=== PATIENT | female | born 2005 | race Caucasian/White ===

== ENCOUNTER 2025-04-27 18:04 | Emergency (ER) | payer OTHER, SELFPAY ==
--- NOTE | 2025-04-27 18:05 | ED_ITS ---
HPI - Skin/Abscess/Foreign Bdy General Chief complaint: Skin/Abscess/Foreign Body Stated complaint: rash behind ears Time Seen by Provider: 04/27/25 18:04 Source: patient Mode of arrival: ambulatory Limitations: no limitations History of Present Illness HPI narrative: Geri is a 19-year-old female patient presenting to the clinic today with complaints of swollen knotted areas to the left posterior ear and to the posterior neck. States that the symptoms started on Friday. They are mildly tender to touch. No fevers, chills, body aches. Denies any URI symptoms. Denies any ear pain, dental pain, or sore throat. Has not taken anything for her symptoms. Related Data Home Medications ?Medication ?Instructions ?Recorded ?Confirmed ?Last Taken ?Type potassium aminobenzoate 500 mg PO PRN 09/04/22 09/04/22 Unknown History capsule Allergies Allergy/AdvReac Type Severity Reaction Status Date / Time amoxicillin AdvReac Intermediate Hives Verified 04/27/25 18:24 Penicillins AdvReac Intermediate Hives Verified 04/27/25 18:24 Review of Systems Review of Systems: Pertinent positives per HPI. Patient denies any fever, chills, rash, headache, visual changes, dizziness, cough, runny nose, sore throat, shortness of breath, chest pain, palpitations, nausea, vomiting, diarrhea, constipation, abdominal pain, or any urinary issues. [facility] Social History Social History Smoking status: Never smoker Alcohol intake: current Alcohol use details: once maybe every six mths Substance use: current Substance use type: marijuana Last use: two months ago - relax Living arrangements: with family Occupation/Education: student Gender identity (if verbalized by the patient): Female Comments At the time of my signature, I reviewed and agree with the nursing past medical, surgical, social, and family history. There is no relevant family history pertinent to the patient complaint. Exam Narrative: General: Well-developed, well nourished, in no apparent distress Head: Normocephalic, atraumatic Eyes: Pupils equally round and reactive to light bilaterally, EOM intact, sclera and conjunctive clear, no discharge, lids normal Ears: TMs intact and clear, ear canals clear, no drainage, grossly hearing normal. Enlargement left postauricle lymph nodes-no redness or erythema, tender to palpation Nose: Nares patent, no discharge, no inflammation, no sinus tenderness. Mouth: Oropharynx without lesions or masses, good dentition, MMM. Neck: Supple, trachea midline, no enlargement of anterior, enlargement of left posterior cervical node-no redness or erythema but tender to palpation, no thyroid masses or goiter palpable. Cardio: Regular rate and rhythm, s1 and s2 normal, no murmur appreciated. Resp: Clear to auscultation bilaterally anteriorly and posteriorly, no rhonchi, rales, wheezing or rubs Course Course Emergency Course: Portions of this record may have been created with voice recognition software. Level of Care: Express Care Visit Vital Signs Vital signs: Vital Signs Temperature 36.8 C 04/27/25 18:10 Pulse Rate 87 04/27/25 18:10 Respiratory Rate 16 04/27/25 18:10 Blood Pressure 128/67 04/27/25 18:10 Pulse Oximetry 100 04/27/25 18:10 Oxygen Delivery Room Air 04/27/25 18:10 Temperature 36.8 C 04/27/25 18:10 Pulse Rate 87 04/27/25 18:10 Respiratory Rate 16 04/27/25 18:10 Blood Pressure 128/67 04/27/25 18:10 Pulse Oximetry 100 04/27/25 18:10 Oxygen Delivery Room Air 04/27/25 18:10 Vital signs reviewed MDM - Skin/Abscess/Foreign Bdy MDM Narrative Medical decision making narrative: At the time of visit patient is resting comfortably on the exam table. Patient appears to be nontoxic. Patient has swollen lymph nodes post auricle and posterior cervical. No redness or erythema around the lymph nodes, tender to palpation, She denies sore throat, fevers, chills, body aches, ear pain, or any URI symptoms. Has normal exam other than the swollen lymph nodes. Has not taken any medications for her symptoms. Plan: Patient has tender swollen lymph nodes to the posterior left cervical in the left posterior auricle. Recommend observation and follow-up with PCP in 1 week if symptoms persist-may need further evaluation such as labs or ultrasound. Supportive measures were discussed with the patient and they voiced understanding discharge instructions and agrees to treatment plan. Return precautions reviewed Differential Diagnosis Differential diagnosis: Likely abscess of skin or subcutaneous tissue, viral exanthem, dermatophytosis, urticaria, herpes zoster, allergic reaction to drug, cellulitis, eczema, insect bites, impetigo, contact dermatitis and other (Lymphadenopathy, dental infection, ear infection, mastoiditis, pharyngitis, mono, strep) Discharge Plan Discharge Clinical Impression: Lymphadenopathy, posterior cervical, Posterior auricular lymphadenopathy Patient Disposition: Home Condition: Stable Instructions: Antibiotic Form, Lymphadenopathy (ED) Additional Instructions: No sign of bacterial infection in the clinic today Observation and follow-up with primary care doctor and 1 week if symptoms persist-may need labs last ultrasound completed May take Tylenol/Motrin as needed for pain Go to the emergency room if symptoms worsen Patient Language: Kazakh Prescriptions: No Action potassium aminobenzoate 500 mg capsule PO PRN sulfamethoxazole-trimethoprim [Bactrim DS] 800-160 mg tablet 1 tablet PO Q12H Qty: 14 0RF Follow-up/Referrals: UNKNOWN,DOCTOR [Primary Care Provider] - Time of Disposition: 18:19 Quality NIHSS Nursing Documentation ED NIHSS nursing documentation: reviewed/agree
--- OUTSIDE RECORDS SUMMARY | 2025-04-27 18:06 | XMS_ITS | Clinical Summary ---
Author Organization [facility] Address [address] [place] [id number] Care Team Providers Care Operations Section Manager Name Role Phone None, Provider MD Primary Care Provider Unavaila ble Allergies Active Allergy Reactions Criticality Noted Date Comments Amoxicillin Hives 03/04/2021 Penicillins Hives 03/04/2021 Medications No known medications Social History Tobacco Use Types Packs/Day Years Used Date Smoking Tobacco: Never Smokeless Tobacco: Never Tobacco Cessation:Counseling Given: Not Answered Alcohol Use Standard Drinks/Week Comments Yes 0 (1 standard drink = 0.6 oz pur e alcohol) SOically Comments Unknown Sex and Gender Information Value Date Recorded Sex Assigned at Not on file Legal Sex Female 11:08 AM CDT Gender Identity Not on file Sexual Orientation Not on file Last Filed Vital Signs Vital Sign Reading Time Taken Comments Blood Pressure 128/84 11/19/2022 9:47 PM SOCIAL WORK NURSE Pulse 92 11/19/2022 9:47 PM SOCIAL WORK NURSE Temperature 36.3 C (97.4 F) 11/19/2022 9:47 PM SOCIAL WORK NURSE Respiratory Rate 18 11/19/2022 9:47 PM SOCIAL WORK NURSE Oxygen Saturation 100% 11/19/2022 9:47 PM SOCIAL WORK NURSE Inhaled Oxygen Concentration - - Weight 68 kg (150 lb) 11/19/2022 9:47 PM SOCIAL WORK NURSE Height 162.6 cm (5' 4) 11/19/2022 9:47 PM SOCIAL WORK NURSE Body Mass Index 25.75 11/19/2022 9:47 PM SOCIAL WORK NURSE Plan of Treatment Health Maintenance Due Date Last Done Comments Annual Physical 12/06/2007 HPV Vaccines (1 - 3-dose series) 12/06/2019 Meningococcal B Vaccine (1 o f 2 - Standard) 2020 Hepatitis C 2022 DTaP, Tdap and Td Vaccines ( 1 - Tdap) 12/06/2023 Hepatitis B Vaccines (1 of 3 - 19+ 3-dose series) 12/06/2023 COVID-19 Vaccine (1 - 2023-2 5 season) 2024 Meningococcal Vaccine Completed 07/07/2022 Pneumococcal Vaccine: Pediat rics (0 to 5 Years) and At-Risk Patients (6 to 49 Years) Aged Out No longer eligi ble based on patient's age to complete this topic RSV Immunizations Under 20 Months Aged Out No longer eligible based on patient's age to complete this topic Insurance [facility] Care Teams Operations Section Manager Relationship Specialty Start Date End Date None, Provider, PCP - General 03/04/21
[2025-04-27 18:10] VITALS: BP 128/67; PULSE 87; RESP 16; TEMP 36.8; O2SAT 100
--- OUTSIDE RECORDS SUMMARY | 2025-04-27 18:10 | XMS_ITS | Data Portability ---
Author Organization [facility] [place], [place] Address [address] [place] [address] [place] [address] Care Team Providers Care Medical Office Assistant Instructor Name Role Phone DELORIS SAM Primary Care Provider [phone] Assessment Encounter Date Assessment Date Assessment LastModified by Organization Details LastModified Time 01/10/2025 01/10/2025 Annual gynecological exam performed. Patient will come back in a year unless there are new symptoms. [email or web address] Not available 01/10/2025 14:54:54 Plan of Treatment Reminders Order Date Submit Date Provider Last Modified By Organization Details Last Modified Time Details Appointments None recorded. Lab None recorded. Referral None recorded. Procedures None recorded. Surgeries None recorded. Imaging US, transvagina l 2023 024 [email or web address] [place], [address], [place], [address], 4 21:58:37 US, pelvis, complete 2023 024 [place], [address], [place], [address], 10:38:50 Medication Orders None recorded. Patient TargetsNo targets recorded. Patient InstructionsNo instructions recorded. Reason for Referral None Reported. Results Created Date Observation Date Name Description Value Unit Range Abnormal Flag Note LastModifiedBy Organization Detail LastModifiedTime 01/07/20 24 01/07/2024 CT/GC AND TRICH OMONA S VAGIN DINO (RRNA ), URINE chlamydia trachomatis, PCR Negati ve negati ve Not Available [facility] (Lab) [address], [place], [address], 01/08/2024 14:05:08 01/07/20 24 01/07/2024 CT/GC AND TRICH OMONA S VAGIN DINO (RRNA ), URINE neisseria gonorrhoeae, PCR Negati ve negati ve Not Available [facility] (Lab) [address], [place], [address], 01/08/2024 14:05:08 01/07/20 24 01/07/2024 CT/GC AND TRICH OMONA S VAGIN DINO (RRNA ), URINE trichomonas vaginalis ribosomal RNA (rrna) Negati ve negati ve Not Available [facility] (Lab) [address], [place], [address], 01/08/2024 14:05:08 02/19/20 24 02/19/2024 CT/GC AND TRICH OMONA S VAGIN DINO (RRNA ), SWAB chlamydia trachomatis, PCR Negati ve negati ve Not Available [facility] (Lab) [address], [place], [address], 02/20/2024 12:58:39 02/19/20 24 02/19/2024 CT/GC AND TRICH OMONA S VAGIN DINO (RRNA ), SWAB neisseria gonorrhoeae, PCR Negati ve negati ve Not Available [facility] (Lab) [address], [place], [address], 02/20/2024 12:58:39 02/19/20 24 02/19/2024 CT/GC AND TRICH OMONA S VAGIN DINO (RRNA ), SWAB trichomonas vaginalis ribosomal RNA (rrna) Negati ve negati ve Not Available [facility] (Lab) [address], [place], [address], 02/20/2024 12:58:39 01/14/20 24 01/14/2024 US, trans vagin al No observ ation record ed. [email or web address] [place] [address], [place], [address], 01/14/2024 18:07:13 01/14/20 24 01/14/2024 US, trans vagin al No observ ation record ed. CATRACHITO Harrington [address], [place], [address], 01/21/2024 11:47:31 Result Notes None recorded. Procedures Surgical History Date Name Laterality Status Provider Name and Address Organization Details Recorded Time 02/19/20 24 IUD Replacement completed Sarita Lake [facility] [address], [place], [address], [facility] 02/19/2024 12:31:08 11/13/19 23 [facility] [address], [place], [address], [facility] 11/13/2022 10:12:36 Imaging Results None recorded. Procedure Notes None recorded. Medical Equipment None Reported. Allergies Allergen ID Allergen Name Allergen Category Reaction Reaction Severity Criticality Documentation Date Start Date Code Code System Note Provider Name and Address Organization Details Recorded Time Dairy medicatio n diarrhea moderate Not available 11/05/2022 74020 UNK Aliza [facility] 09:58:09 Product containin g penicilli n (product) medicatio n Not available Not available Not available 01/08/2023 11886 8001 SNOMED Aliza [facility] 3 16:55:51 Medications Name Sig Start Date Stop Date Status Note LastModified by Organization Details LastModified Time Mirena 21 mcg/24 hr (up to 8 years) 52 mg intrauterin e device Take by intrauter ine route. active Not Available Not Available No t Available misoprostol 100 mcg tablet Insert 1 tablet vaginally at HS the night prior to IUD insertion . 01/08 completed Not Available Not Available Not Available hydroxyzine HCl 25 mg tablet Take 1 tablet PO x 1hr prior to IUD insertion for anxiety. 01/08 completed Not Available Not Available Not Available ibuprofen 600 mg tablet Take 1 tablet PO 1hr prior to IUD insertion ; then, q8hrs post-inse rtion x 24-48hrs with food PRN 01/08 completed Not Available Not Available Not Available ParaGard T 380A 380 square mm intrauterin e device insert 1 device 04/07 completed Not Available Not Available Not Available Vitals Date Recorded Body height Body mass index (BMI) [Percentile] Per age and sex Body mass index (BMI) Body weight Systolic And Diastolic Provider Name and Address Organization Details Last Updated DateTime 01/07/2024 162.56 cm 78 % 24.7 kg/m2 81903.3 g 125/79 mm[Hg] Pastora [facility] 4 10:49:25 Date Recorded Body height Body mass index (BMI) [Percentile] Per age and sex Body mass index (BMI) Body weight Systolic And Diastolic Provider Name and Address Organization Details Last Updated DateTime 01/10/2025 162.56 cm 70 % 23.8 kg/m2 05984.6 2 g 106/70 mm[Hg] OLIVIA Lucero [facility] 5 14:55:13 Date Recorded Body height Body mass index (BMI) Body mass index (BMI) [Percentile] Per age and sex Body weight Systolic And Diastolic Provider Name and Address Organization Details Last Updated DateTime 02/19/2024 162.56 cm 24.2 kg/m2 75 % 92728.5 2 g 131/79 mm[Hg] Pastora [facility] 4 12:09:57 Date Recorded Body height Body mass index (BMI) [Percentile] Per age and sex Body mass index (BMI) Body weight Systolic And Diastolic Provider Name and Address Organization Details Last Updated DateTime 04/07/2024 162.56 cm 73 % 24 kg/m2 89568.9 3 g 119/78 mm[Hg] Edwina Brizuela [facility] 11:44:14 Social History Question Answer Notes LastModified by Organizat ion Details LastModified Time Tobacco Smoking Status Never Smoker Aliza Aiken shobha [facility] 11/05/2022 09:59:23 Do You Have An Advance Directive? No Information n ot available 11/05/2022 Are You Blind Or Do You Have Difficulty Seeing? No Information n ot available 11/05/2022 How Much Tobacco Do You Chew? None Information not available 01/07/2024 In The 14 Days Before Symptom Onset, Have You Had Close Contact With A Laboratory-confirm ed COVID-19 While That Case Was Ill? No Information n ot available 01/08/2023 In The 14 Days Before Symptom Onset, Have You Had Close Contact With A Person Who Is Under Investigation For COVID-19 While That Person Was Ill? No Information not available 01/08/2023 Have You Been To An Area Known To Be High Risk For COVID-19? No Information not available 11/05/2022 Are You Deaf Or Do You Have Serious Difficulty Hearing? No Information not available 11/05/2022 What Type Of Diet Are You Following? REGULAR Information n ot available 11/05/2022 What Is The Highest Grade Or Level Of School You Have Completed Or The Highest Degree You Have Received? [id number] Information not available 01/07/2024 Are There Any Guns Present In Your Home? No Information not available 11/05/2022 Do You Use Protection During Sex? No Information not available 11/05/2022 Do You Use Your Seat Belt Or Car Seat Routinely? Yes Information not available 11/05/2022 Do You Have Smoke And Carbon Monoxide Detectors In Your Home? Yes Information not available 11/05/2022 How Much Tobacco Do You Smoke? No Information not available 01/07/2024 Do You Use Sunscreen Routinely? No Information not available 11/05/2022 Have You Used IV Drugs? No Information not available 11/05/2022 Do You Have Difficulty Walking Or Climbing Stairs? No Information not available 11/05/2022 Sex: Unknown Functional Status Question Answer Note LastModified by Organizat ion Details LastModified Time Do you use any illicit or recreational drugs? No Information not available 11/05/2022 What is your level of alcohol consumption? None Information not available 11/05/2022 Are you able to walk? YESWOREST Information not available 11/05/2022 Are you able to care for yourself? Yes Information n ot available 11/05/2022 Do you have difficulty dressing or bathing? No Information not available 11/05/2022 What is your exercise level? Occasional Information not available 11/05/2022 Mental Status Question Answer Note LastModified by Organization D etails LastModified Time Do you feel stressed (tense, restless, nervous, or anxious, or unable to sleep at night)? [id number] Information not available 11/05/2022 Family History Relationship Description Onset Age of this Age Resolved Age Notes LastModified by Organization Details LastModified Time Maternal Grandmother Malignant tumor of breast Not available 2022 09:59:07 Paternal Grandmother Malignant neoplasm of lung Not available 2022 09:59:12 Medical History Condition Response Other N Blood Transfusion N Dermatologic Disorders N Gestational Diabetes N Anxiety Disorder N Autoimmune disease N Arthritis N Polyps N Infertility N Acid Reflux (GERD) N Cancer N Varicosities N Stroke N Neurologic/Epilepsy N Fibromyalgia N Headaches N Kidney Disease N Heart Problems N Kidney or Bladder Problems N Eating Disorder N Art (IVF or FET) N Hepatitis/Liver Disease N No Past Medical History N Urinary Tract Infection N Asthma N Trauma/Violence N Thrombophilias N Allergies (Food, seasonal, environmental ) N Breast Cancer N Drug/Latex Allergies/Reactions N Lung Disease N Defects or Inherited Disease N Breast Problem N Hematologic disorders N Anesthesia Complications N History of STI N Deep Vein Thrombosis N Polycystic ovary syndrome N History of abnormal pap N Endometriosis N High Cholesterol N Thyroid Problems N GI Problems N Anemia N Psychiatric Illness N Ovarian Cancer N Diabetes N Pulmonary (TB, Asthma) N Eczema N Abuse/Domestic Violence N Depression/ depression N Heart Disease N Pre-Eclampsia N Hypertension N Osteoporosis N Gynecological History Statement/Question Response Date of Last Mammogram Flow Moderate Date of LMP 04/05/2024 N Was last menstrual period normal N STIs/STDs N Date of Last Colonoscopy Desired Control Method IUD Abnormal Pap N On BCP's at Conception? N HPV Vaccine N Colposcopy Duration of Flow (days) 4 Current Control Method IUD Are cycles usually normal N Sexually Active? Y Menses Monthly Y Date of DEXA bone scan Age of first menstrual cycle 10 Date of Last Pap Smear Sexual Problems? N LMP Definite N Obstetrics History GPAL:G 0 P 0 0 0 0 Past Encounters Encounter ID Performer Location Encounter Start Date Encounter Closed Date Diagnosis/Indication Diagnosis SNOMED-CT Code Diagnosis ICD10 Code Diagnosis Note [id number] Sarita Lake [facility] [address],[place] [address] 11/05/2022 09:42:10 11/05/2022 10:48:47 Contraception care management 936872618 Z30.9 Discussed all control options and pt would like Paraguard IUD. I have discussed in detail all risks and benefits including risk of infection and perforatio n. She understand s she will need to contact office with next menses. Aware of need to verify with insurance device coverage. Literature given. All questions answered to patient satisfacti on.Contact office when on next menstrual cycle for placement b/t days 1-5.Cytote cIbuprofen Hydroxyzin eSent for pain/anxie ty/soften cervix.STD urine sent Hx reviewed & updated Time spent in visit is a total of 30 mins with at least 50% of visit consisting of counseling and review of plan of care. [id number] [facility] [address],[facility] [place] [address] 11/13/2022 09:33:14 11/13/2022 11:08:34 Insertion of intrauterine contraceptive device [id number] Z30.430 She has been counseled on all of the r/b/a of placement of an intrauteri ne device that include but are not limited to uterine perforatio n, injury to cervix, vagina, bladder, and bowel.Risk s of bleeding due to injury or increased irregular bleeding due to progestin effect of the device. Risks of infection would be increased within the first 21 days of placement with concommita nt cervicitis . She understand s that the device will need to be removed in this instance due to increased risk of Pelvic inflammato ry disease. Patient is aware she is at higher risk for STD and if contracted she could lose her fertility. Pt is aware that if occurs that she should contact office immediatel y to rule out ectopic which could be life threatenin g. IUD will also need to be removed and this could cause miscarriag e. Patient also informed that in the event her strings are absent or embedded at the time of removal she may need to have the IUD surgically removed. She was informed of the above and properly consented. IUD placed w/o complicati on. Patient should return to office after next period to check for string placement. Patient to expect irregular bleeding but should be seen in the ED if bleeding increases to soaking a pad an hour for at least 2 hours. She verbalized understand ing. RTO x 6-8wks IUD string check [facility] ion care management [id number] Z30.9 [id number] [place] [facility] [address],[facility] [place] [address] 01/08/2023 16:46:21 01/08/2023 17:43:03 IUD check 704420688 Z30.431 Patient is here for 4-6wk IUD string check. She denies complicati ons, pain, or unpleasant side effects. Happy with this control method. Wishes to continue. Counseled on Signs/symp toms of IUD issues & understand ing verbalized .Will call if any other issues or concerns. Time spent in visit is a total of 20 mins with at least 50% of visit consisting of counseling and review of plan of care. [id number] [facility] [address],[facility] [place] [address] 01/07/2024 10:35:04 01/07/2024 11:19:55 Abnormal uterine bleeding [id number] 9100 N93.9 Today we discussed Paraguard IUD and increase in heavier, longer, more crampy menstrual cycles.Thi s is very normal for this device and likely what is happening since these sx's started after placement of IUD. We agreed on updated TVUS, send urine for STD; UPT.Will reach out with results and if further recommenda tions/eval uation is required. IF all wnl patient does not wish to switch BC methods at this time; she voices that she just wants to ensure nothing is wrong. Time spent in visit is a total of 22 mins with at least 50% of visit consisting of counseling and review of plan of care. [id number] Aniceto Velazquez MD [place] [address] [address] 01/14/2024 11:56:14 01/14/2024 12:54:13 Abnormal uterine bleeding [id number] 9100 N93.9 T83.39XA [id number] [place] [facility] [address],[facility] [place] [address] 02/19/2024 12:00:35 02/19/2024 12:35:34 Contraception care management [id number] Z30.9 Discussed all control options and pt would like mirena IUD. I have discussed in detail all risks and benefits including risk of infection and perforatio n. She understand s she will need to contact office with next menses or may abstain, complete serum HCG day before placement, if neg can have IUD placed next day. Aware of need to verify with insurance device coverage. Literature given. All questions answered to patient satisfacti on. Time spent in visit is a total of 25 mins with at least 50% of visit consisting of counseling and review of plan of care NOT including time spent on procedure. Replacemen t of intrauterine contraceptive device 86822535 Z30.433 It was explained that she may have bleeding or spotting after the removal of the device today as well. If cannot see the strings of this device we will need to get an US image to make that the device is still in place and not in an unobtainab le position. She expressed understand ing of all the above instructio ns. Replaced with Mirena IUD She has been counseled on all of the r/b/a of placement of an intrauteri ne device that include but are not limited to uterine perforatio n, injury to cervix, vagina, bladder, and bowel.Risk s of bleeding due to injury or increased irregular bleeding due to progestin effect of the device. Risks of infection would be increased within the first 21 days of placement with concommita nt cervicitis . She understand s that the device will need to be removed in this instance due to increased risk of Pelvic inflammato ry disease. Patient is aware she is at higher risk for STD and if contracted she could lose her fertility. Pt is aware that if occurs that she should contact office immediatel y to rule out ectopic which could be life threatenin g. IUD will also need to be removed and this could cause miscarriag e. Patient also informed that in the event her strings are absent or embedded at the time of removal she may need to have the IUD surgically removed. She was informed of the above and properly consented. IUD placed w/o complicati on. Patient should return to office after next period to check for string placement. Patient to expect irregular bleeding but should be seen in the ED if bleeding increases to soaking a pad an hour for at least 2 hours. She verbalized understand ing. RTO x 6-8wks string check [id number] AYSHA Ray [place] [address] [address] 04/07/2024 11:40:38 04/07/2024 11:55:18 IUD check [id number] Z30.431 Patient is here for 4-6wk IUD string check.norm al appearing IUD strings noted on exam She denies complicati ons, pain, or unpleasant side effects. Happy with this control method. Wishes to continue.R TC for WWE in 1 yr or sooner if needed Time spent in visit is a total of 18 mins with at least 50% of visit consisting of counseling and review of plan of care. [id number] Aniceto Velazquez MD [place] [address] [address] 01/10/2025 14:46:25 01/10/2025 15:29:20 Gynecologic examination 52410498 Z01.419 Annual gynecologi zoila exam performed. Patient will come back in a year unless there are new symptoms. Suggest Calcium with Vitamin D if not eating in diet. Patient advised to get annual flu shot. Recommend yearly physicals and perform monthly breast exams. Genetic testing is available for patients with family history of cancer. Engage in safe sexual practices, use condoms. Encouraged to have daily exercise. Avoid tobacco and illicit drugs, moderation of alcohol. If BMI greater than 25 dietary consult advised. If you have any questions please call or email. Pap smear- due at age 20 y/o per ASCCP guidelines ; will obtain first pap smear next year STI testing - declined A Mirena IUD prevents for up to 8 years, and also helps with heavy periods for up to 5 years in women who choose an IUD for control. Health Concerns Section Related Observation LastModified by Organization Detai ls LastModified Time None Recorded Concern Status LastModified by Organization Details LastModified Time None Recorded Advance Directives Directive N: Payers Insurance Date Sequence Insurance Name Policy Number Policy Mejia Covered Member ID Mejia Member ID Guarantor Name 03/16/2025 1 [employer] [id number] Geri Humphrey Olvera [id number] Geri A Olvera 03/16/[address] [facility] (PP[facility] [id number] Geri Olvera [id number] Geri Humphrey Olvera Notes Date Note Type Note Provider Name and Address Organization Details Recorded Time 01/07/2024 text/html Here today for A UB with IUD paraguard. Voices her cycles have increased in flow, duration of 7 days, and more crampy since placement of this device; This has been her new norm since placement. Neg pain of abd/pelvis/flankNe g urinary sx'sNeg GI sx'sNeg N/V/F/C/DNeg Vag d/c, odor, irritation, itchingNeg new sexual partners Sarita Lake, [facility]- [address], [place], [address], [facility] 01/07/2024 11:15:36 02/19/2024 text/html Geri presents today with request to switch from Paraguard to Mirena IUD for better menstrual management. She is frustrated by the heavier, longer menses that have been the trend monthly since paraguard was placed. She wanted to switch to mirena for both contraception/mens es management. Neg pain of abd/pelvis/flankNe g urinary sx'sNeg GI sx'sNeg N/V/F/C/DNeg Vag d/c, odor, irritation, itching AYSHA Garcia-[facility] [address], [place], [address], [facility] 02/19/2024 12:33:09 04/07/2024 text/html 18yo [id number] for IUD checks/p mirena IUD inserted 02/19/2024oing well, no issues AYSHA Ray [address], [place], [address], [facility] 04/07/2024 11:54:37 01/10/2025 text/html Annual GYNReport ed bypatient.Menstrua l cycle:No cycles with IUD Urinary symptoms:No hematuria; No incontinence Vulva:No genital lesion Vagina:Normal vaginal discharge Breast:No breast pain; No breast lump; No nipple discharge Current Contraception:Sati sfied with current contraception; Intrauterine device (iud) Sexual complaints:No sexual complaints; No pain during intercourse; Normal libido Menopausal Symptoms:No menopausal symptoms; Normal vaginal lubrication Psychological symptoms:No depression; No anxiety; No PMDD Preventive measures:Encourage self breast examination; Encourage regular exercise; Encourage no tobacco use; Encourage regular mammograms starting age 40 Patient presents for annual well woman exam. Patient denies concerns today.Patient requests to have her Mirena IUD strings checked. No periods or concerns with IUD. ALMITA SCHMITZ NP [address], [place], [address], [facility] 01/10/2025 15:29:05 OBGyn Episode No OBEpisode recorded.
== END 2025-04-27 18:25 | disposition home or self-care (01) ==
PROVIDERS: Emergency Provider Nurse Practitioner Family
DX: R59.0 Localized enlarged lymph nodes (principal)
CPT/HCPCS: 99211; G0463